=== PATIENT | male | born 1995 ===

== ENCOUNTER → 2018-05-10 | Outpatient (CLI) | payer BC ==
--- NOTE | 2018-05-10 08:33 | US ---
EXAMINATION TYPE: US abdomen complete DATE OF EXAM: 05/10/2018 COMPARISON: NONE CLINICAL HISTORY: R74.80 Elevated liver enzymes. Patient stated does not take any medications. EXAM MEASUREMENTS: Liver Length: 13.4 cm Gallbladder Wall: 0.2 cm CBD: 0.4 cm Spleen: 9.8 cm Right Kidney: 11.0 x 5.6 x 4.3 cm Left Kidney: 10.5 x 4.6 x 5.2 cm Pancreas: wnl; tail obscured by overlying bowel gas Liver: wnl Gallbladder: wnl Evidence for sonographic Puga's sign: no CBD: wnl Spleen: wnl Right Kidney: wnl Left Kidney: wnl Upper IVC: wnl Abd Aorta: wnl The liver is homogenous. The intrahepatic portion of the IVC and proximal abdominal aorta are within normal limits. There is no evidence of cholelithiasis. Common bile duct is unremarkable. The visu alized portions of the pancreas are homogenous. The spleen is unremarkable. Kidneys are symmetric a nd free of hydronephrosis. No renal lesions are seen. IMPRESSION: Exam is somewhat limited. No abnormalities evident.
== END ==
LOC: RADUSWWP 07:21
PROVIDERS: ATTEND Family Medicine
DX: R74.8 Abnormal levels of other serum enzymes (principal)
CPT/HCPCS: 76700